=== PATIENT | female | born 1935 | race Caucasian/White ===

== ENCOUNTER 2017-03-31 12:52 | Outpatient (CLI) | payer MEDICARE, OTHER | END 2017-03-31 12:53 | disposition home or self-care (01) | LOC: DI 12:52 | PROVIDERS: ATTEND Internal Medicine Cardiovascular Disease | DX: Z01.810 Encounter for preprocedural cardiovascular examination (principal); I50.9 Heart failure, unspecified; R00.1 Bradycardia, unspecified | CPT/HCPCS: 93306 ==

== ENCOUNTER 2017-07-25 15:34 | Outpatient (CLI) | payer MEDICARE, OTHER ==
[2017-07-25 15:56] LABS: BASOPHILS % (AUTO) 0.5 %; EOSINOPHILS # (AUTO) 0.1 10^3/uL (0.0-0.7); EOSINOPHILS % (AUTO) 2.2 %; HGB - HEMOGLOBIN 12.8 g/dL (12.0-16.0); LYMPHOCYTES # (AUTO) 1.7 10^3/uL (1.5-3.5); LYMPHOCYTES % (AUTO) 25.5 %; MEAN CORPUSCULAR HGB CONC 33.7 g/dL (32.0-36.0); MEAN CORPUSCULAR VOLUME 91.9 fL (81.0-99.0); MEAN PLATELET VOLUME 6.8 fL (7.9-10.8); MONOCYTES # (AUTO) 0.4 10^3/uL (0.0-1.0); MONOCYTES % (AUTO) 5.9 %; NEUTROPHILS # (AUTO) 4.4 10^3/uL (1.5-6.6); NEUTROPHILS % (AUTO) 65.9 %; PLT - PLATELET COUNT 358 10^3/uL (130-450); RED BLOOD COUNT 4.14 10^6/uL (4.20-5.40); RED CELL DISTRIBUTION WIDTH 13.9 % (12.0-15.0); WHITE BLOOD COUNT 6.6 x10^3/uL (4.8-10.8)
== END 2017-07-25 15:35 | disposition home or self-care (01) ==
LOC: LAB 15:34
PROVIDERS: ATTEND Internal Medicine Cardiovascular Disease
DX: R06.00 Dyspnea, unspecified (principal); Z79.899 Other long term (current) drug therapy
CPT/HCPCS: 36415; 83880; 85025

== ENCOUNTER 2017-10-09 15:52 | Emergency (ER) | payer MEDICARE, OTHER ==
--- NOTE | 2017-10-09 17:15 | ED Physician Documentation ---
History of Present Illness - Stated complaint Stated Complaint: COUGH/CONSTIPATED - Chief complaint Chief Complaint: General - Additonal information Additional information: hx from pt 82 f to ER with 2 CC 1) lifelong bowel issues with sung severe cosntipation, has had many colonoscopies most recently 8 yr ago and she always has a terrible time with the prep and has decided that age 82 she is not going to go through that again, no BM and no no flatus for 8 days despite taking laxatives and manually disimpacting herself, no NV, mild bloating, no abd or rectal pain 2) cough productive of yellow sputum, no sig soa, no fever, no foreign travel, did go to [facility], no leg swelling Review of Systems Constitutional: denies: Fever Cardiac: denies: Chest pain / pressure Respiratory: reports: Cough. denies: Dyspnea GI: reports: Abdominal Swelling, Constipation. denies: Abdominal Pain, Vomiting Immunocompromised: denies: Immunocompromised PD PAST MEDICAL HISTORY - Past Medical History Cardiovascular: High cholesterol - Past Surgical History Past Surgical History: Yes Ortho: Other - Present Medications Home Medications: Ambulatory Orders Medication Instructions Recorded Confirmed Amitriptyline [Elavil] 50 mg PO QPM 07/26/14 02/25/15 Aspirin [Aspir 81] 81 mg PO DAILY 07/26/14 02/25/15 Bupropion HCl [Wellbutrin] 75 mg PO DAILY 07/26/14 02/25/15 Omeprazole [PriLOSEC] 20 mg PO DAILY 07/26/14 02/25/15 Venlafaxine [Effexor] 37.5 mg PO DAILY 07/26/14 02/25/15 Atorvastatin [Lipitor] 60 mg PO QPM 07/28/14 02/25/15 Budesonide/Formoterol Fumarate 1 spray IH DAILY PRN 07/28/14 02/25/15 [Symbicort 80-4.5 Mcg Inhaler] Calcium Carbonate/Vitamin D3 2 each PO DAILY 07/28/14 02/25/15 [Calcium 600 + D3 Softgel] Glucosa Ferrari 2Kcl/Chondroitin Ferrari 2 each PO DAILY 07/28/14 02/25/15 [Glucosamine & Chondroitin Cap] Losartan [Cozaar] 12.5 mg PO DAILY 07/28/14 02/25/15 Diclofenac Sodium 50 DAILY 07/29/14 02/25/15 Omeprazole 1 tab PO DAILY 10/09/17 10/09/17 - Allergies Allergies/Adverse Reactions: Allergies Allergy/AdvReac Type Severity Reaction Status Date / Time No Known Drug Allergies Allergy Verified 10/09/17 16:02 - Social History Does the pt smoke?: No Smoking Status: Never smoker Does the pt drink ETOH?: Yes Does the pt have substance abuse?: No - Immunizations Immunizations are current?: Yes - POLST Patient has POLST: No PD ED PE NORMAL - Vitals Vital signs reviewed: Yes - Cardiac Cardiac: RRR - Respiratory Respiratory: Other (wet cough, dec carrie) - Abdomen Abdomen: Soft, Non tender - Rectal Rectal: Other (no stool in vault) - Derm Derm: Normal color - Extremities Extremities: Other (minimal carrie symm edema without tenderness) - Neuro Neuro: Alert and oriented X 3 Results - Vitals Vitals: Vital Signs - 24 hr 10/09/17 10/09/17 15:54 18:39 Temperature 36.4 C L Heart Rate 76 68 Respiratory 16 18 Rate Blood Pressure 161/75 H 159/76 H O2 Saturation 100 99 Oxygen O2 Source Room air - Rads (name of study) CXR Radiology: See rad report (nl) AAS Radiology: See rad report (no SBO sig obstipation) Departure - Departure Disposition: 01 Home, Self Care Clinical Impression: URI (upper respiratory infection) Qualifiers: URI type: unspecified viral URI Qualified Code(s): J06.9 - Acute upper respiratory infection, unspecified Constipation Qualifiers: Constipation type: unspecified constipation type Qualified Code(s): K59.00 - Constipation, unspecified Condition: Good Instructions: ED Constipation, ED Upper Resp Infec No Abx Tx Follow-Up: Candace Vargas MD [Primary Care Provider] - Comments: The xrays do not show pneumonia or a bowel obstruction - you do have a large amount of backed up stool I recommend we let you go home with Go-Lytely - drink several large sips every 15 minutes until you are pooping clear water, then you can stop. You might want to apply vaseline or a barrier cream to your bottom to keep it from getting sore and raw from the diarrhea I also prescribed cough medications Follow up with your PMD if not better in 2 days Return if worse
--- NOTE | 2017-10-09 18:16 | XRAY Preliminary Report ---
Exam: XR ABDOMEN 2 VIEW X-RAY IMPRESSION: Moderate obstipation. [facility] SITE ID: [id number]
--- NOTE | 2017-10-09 18:17 | XRAY Preliminary Report ---
Exam: XR CHEST 2 VIEW X-RAY IMPRESSION: Normal 2-view chest radiography. [facility] SITE ID: [id number]
--- NOTE | 2017-10-09 18:24 | XRAY Report ---
EXAM: ABDOMEN RADIOGRAPHY. EXAM DATE: 10/09/2017 05:40 PM. CLINICAL HISTORY: No bowel movement or flatus. COMPARISON: None. TECHNIQUE: 2 views. FINDINGS: Lung Bases: Unremarkable. Bowel Gas Pattern: Marked amount of stool throughout the tortuous moderately distended colon. Small air-fluid levels within nondistended loops of small bowel. No gastric distention. Free Air: None. Other: Multiple pelvic clips. Left total hip replacement. IMPRESSION: Moderate obstipation. [facility] Referring Provider Line: [phone] SITE ID: [id number]
--- NOTE | 2017-10-09 18:24 | XRAY Report ---
EXAM: CHEST RADIOGRAPHY EXAM DATE: 10/09/2017 05:40 PM. CLINICAL HISTORY: Cough. COMPARISON: None. TECHNIQUE: 2 views. FINDINGS: Lungs/Pleura: No focal opacities evident. No pleural effusion. No pneumothorax. Normal volumes. Mediastinum: Heart and mediastinal contours are unremarkable. Other: Prior left breast surgery. IMPRESSION: Normal 2-view chest radiography. [facility] Referring Provider Line: [phone] SITE ID: [id number]
[2017-10-09 18:39] VITALS: BP 159/76
[2017-10-09] MEDS ORDERED: BENZONATATE 100 MG CAPSULE PO STA (18:59)
[2017-10-09] MEDS ORDERED: guaiFENesin/DEXTROMETHORPHAN 10 ML UDC PO STA (18:59)
[2017-10-09] MEDS ORDERED: PEG 3350/NA SULF,BICARB,CL/KCL 4,000 ML BOTTLE PO ONE (18:59)
== END 2017-10-09 19:27 | disposition home or self-care (01) ==
LOC: ED 15:52
DX: J06.9 Acute upper respiratory infection, unspecified (principal); K59.00 Constipation, unspecified; R60.0 Localized edema; Z79.82 Long term (current) use of aspirin
CPT/HCPCS: 71046; 74019; 99283; A9270

== ENCOUNTER 2019-02-04 15:30 | Outpatient (CLI) | payer MEDICARE, OTHER ==
[2019-02-04 17:44] LABS: CALCIUM 9.1 mg/dL (8.5-10.3)
== END 2019-02-04 15:31 | disposition home or self-care (01) ==
LOC: LAB.S 15:30
PROVIDERS: ATTEND Internal Medicine Cardiovascular Disease
DX: I50.23 Acute on chronic systolic (congestive) heart failure (principal)
CPT/HCPCS: 36415; 80048; 83880

== ENCOUNTER 2021-01-09 14:32 | Outpatient (CLI) | payer MEDICARE, OTHER | END 2021-01-09 14:33 | disposition home or self-care (01) | LOC: LAB.S 14:32 | PROVIDERS: ATTEND Nurse Practitioner Acute Care | DX: E34.9 Endocrine disorder, unspecified (principal); E55.9 Vitamin D deficiency, unspecified; E78.70 Disorder of bile acid and cholesterol metabolism, unspecified; Z53.9 Procedure and treatment not carried out, unspecified reason ==

== ENCOUNTER 2021-01-11 08:55 | Outpatient (CLI) | payer MEDICARE, OTHER ==
[2021-01-11 14:47] LABS: BASOPHILS % (AUTO) 0.6 %; EOSINOPHILS # (AUTO) 0.1 10^3/uL (0.0-0.7); EOSINOPHILS % (AUTO) 3.6 %; HCT - HEMATOCRIT 37.7 % (37.0-47.0); HGB - HEMOGLOBIN 11.9 g/dL (12.0-16.0); LYMPHOCYTES # (AUTO) 1.4 10^3/uL (1.5-3.5); LYMPHOCYTES % (AUTO) 38.9 %; MEAN CORPUSCULAR HEMOGLOBIN 30.8 pg (27.0-31.0); MEAN CORPUSCULAR HGB CONC 31.6 g/dL (32.0-36.0); MEAN CORPUSCULAR VOLUME 97.7 fL (81.0-99.0); MEAN PLATELET VOLUME 9.8 fL (7.9-10.8); MONOCYTES # (AUTO) 0.3 10^3/uL (0.0-1.0); MONOCYTES % (AUTO) 8.6 %; NEUTROPHILS # (AUTO) 1.7 10^3/uL (1.5-6.6); PLT - PLATELET COUNT 365 10^3/uL (130-450); RED BLOOD COUNT 3.86 10^6/uL (4.20-5.40); RED CELL DISTRIBUTION WIDTH 14.1 % (12.0-15.0); WHITE BLOOD COUNT 3.6 x10^3/uL (4.8-10.8)
[2021-01-11 15:21] LABS: RHEUMATOID FACTOR NEGATIVE (Negative)
[2021-01-11 15:25] LABS: CHOL/HDL RATIO 3.2 (<4.4); CHOLESTEROL 158 mg/dL; HDL CHOLESTEROL 49 mg/dL; LDL CHOLESTEROL,CALCULATED 86 mg/dL; LDL/HDL RATIO 1.8 (<4.4); TRIGLYCERIDES 116 mg/dL; VLDL CHOLESTEROL 23 mg/dL
[2021-01-11 15:31] LABS: THYROID STIMULATING HORMONE 4.61 uIU/mL (0.34-5.60)
[2021-01-11 15:35] LABS: FREE T3 2.91 pg/mL (2.5-3.9)
[2021-01-11 15:41] LABS: FERRITIN 53.2 ng/mL (11.0-306.8)
[2021-01-11 15:42] LABS: FOLATE 7.67 ng/mL (5.90 - >24.8)
[2021-01-11 19:48] LABS: ESTIMATED AVERAGE GLUCOSE 117 mg/dL (70-100); HEMOGLOBIN A1c% 5.7 % (4.27-6.07)
[2021-01-12 05:45] LABS: PROGESTERONE <0.5 ng/mL
[2021-01-12 06:01] LABS: ESTRADIOL <15 pg/mL
[2021-01-12 12:10] LABS: HOMOCYSTEINE 18.9 umol/L (<10.4)
== END 2021-01-11 08:56 | disposition home or self-care (01) ==
LOC: LAB.S 08:55
PROVIDERS: ATTEND Nurse Practitioner Acute Care
DX: E34.9 Endocrine disorder, unspecified (principal); E55.9 Vitamin D deficiency, unspecified; E78.70 Disorder of bile acid and cholesterol metabolism, unspecified
CPT/HCPCS: 36415; 80061; 81599; 82172; 82306; 82607; 82670; 82728; 82746; 83036; 83090; 83721; 84144; 84305; 84403; 84439; 84443; 84481; 85025; 86376; 86430

== ENCOUNTER 2021-02-02 16:28 | Outpatient (CLI) | payer MEDICARE, OTHER | END 2021-02-02 16:29 | disposition home or self-care (01) | LOC: COV 16:28 | PROVIDERS: ATTEND Internal Medicine Cardiovascular Disease | DX: Z01.812 Encounter for preprocedural laboratory examination (principal); R06.09 Other forms of dyspnea; Z20.822 Contact with and (suspected) exposure to COVID-19 ==

== ENCOUNTER 2022-12-30 11:47 | Emergency (ER) | payer MEDICARE, OTHER ==
[2022-12-30 11:59] VITALS: BP 132/67; O2SAT 100
[2022-12-30] MEDS ORDERED: ENOXAPARIN 80 MG/0.8 ML SYRINGE SUBQ STA (12:08)
--- NOTE | 2022-12-30 12:11 | ED Physician Documentation ---
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 She is not anticoagulated other than aspirin, she is not sure why. She developed a tender swollen area on the right leg today and is concerned about DVT. No chest pain or trouble breathing. PD PAST MEDICAL HISTORY - Past Medical History Cardiovascular: High cholesterol - Past Surgical History Past Surgical History: Yes Ortho: Other - Present Medications Home Medications: Ambulatory Orders Medication Instructions Recorded Confirmed Amitriptyline [Elavil] 50 mg PO QPM 07/26/14 02/25/15 Aspirin [Aspir 81] 81 mg PO DAILY 07/26/14 02/25/15 Bupropion HCl [Wellbutrin] 75 mg PO DAILY 07/26/14 02/25/15 Omeprazole [PriLOSEC] 20 mg PO DAILY 07/26/14 02/25/15 Venlafaxine [Effexor] 37.5 mg PO DAILY 07/26/14 02/25/15 Atorvastatin [Lipitor] 60 mg PO QPM 07/28/14 02/25/15 Budesonide/Formoterol Fumarate 1 spray IH DAILY PRN 07/28/14 02/25/15 [Symbicort 80-4.5 Mcg Inhaler] Calcium Carbonate/Vitamin D3 2 each PO DAILY 07/28/14 02/25/15 [Calcium 600 + D3 Softgel] Glucosa Ferrari 2Kcl/Chondroitin Ferrari 2 each PO DAILY 07/28/14 02/25/15 [Glucosamine & Chondroitin Cap] Losartan [Cozaar] 12.5 mg PO DAILY 07/28/14 02/25/15 Diclofenac Sodium 50 DAILY 07/29/14 02/25/15 Benzonatate [Tessalon] 100 mg PO TID PRN #20 capsule 10/09/17 Omeprazole 1 tab PO DAILY 10/09/17 10/09/17 guaiFENesin/DEXTROMETHORPHAN 10 ml PO Q6H PRN #120 ml 10/09/17 [Robitussin Dm] - Allergies Allergies/Adverse Reactions: Allergies Allergy/AdvReac Type Severity Reaction Status Date / Time No Known Drug Allergies Allergy Verified 10/09/17 16:02 - Social History Does the pt smoke?: No Smoking Status: Never smoker Does the pt drink ETOH?: Yes Does the pt have substance abuse?: No - Immunizations Immunizations are current?: Yes - POLST Patient has POLST: No PD ED PE NORMAL - Vitals Vital signs reviewed: Yes - General General: Alert and oriented X 3, No acute distress - Back Back: No CVA TTP, No spinal TTP - Extremities Extremities: Other (On the anteromedial right knee there is what appears to be probably a superficial venous thrombosis with prominent surface vein.) - Neuro Neuro: Alert and oriented X 3, Normal speech Results - Vitals Vitals: Vital Signs - 24 hr 12/30/22 11:51 Temperature 36.6 C Heart Rate 59 L Respiratory 18 Rate Blood Pressure 132/67 H O2 Saturation 100 Oxygen O2 Source Room air PD Medical Decision Making - ED course ED course: 87-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 Unfortunately due to staffing issues we do not have ultrasonography available today and she is very understanding. We will give her a dose of Lovenox, she shows me recent labs and her GFR is 46 so no renal adjustment is necessary. She will return tomorrow for ultrasound. Departure - Departure Disposition: 01 Home, Self Care Clinical Impression: Pain in extremity Qualifiers: Extremity pain location: lower extremity Laterality: right Qualified Code(s): M79.604 - Pain in right leg Condition: Good Record reviewed to determine appropriate education?: Yes Instructions: ED DVT Comments: As discussed, I suspect you do not have deep vein thrombosis, this looks more superficial to me but she certainly do need the ultrasound. Given that we do not have ultrasound available today. We have temporized the issue by giving you a dose of Lovenox blood thinner. Return tomorrow morning to see my partner, Dr. Heath and have ultrasonography ordered. Please make sure when you check-in that you are checking into the emergency department, not trying to simply go over to ultrasound.
== END 2022-12-30 12:26 | disposition home or self-care (01) ==
LOC: ED 11:47
DX: M79.604 Pain in right leg (principal); E78.00 Pure hypercholesterolemia, unspecified; Z79.82 Long term (current) use of aspirin; Z79.899 Other long term (current) drug therapy
CPT/HCPCS: 99283; J1650

== ENCOUNTER 2022-12-31 10:04 | Emergency (ER) | payer MEDICARE, OTHER ==
[2022-12-31 10:17] VITALS: O2SAT 98
--- NOTE | 2022-12-31 11:58 | ED Physician Documentation ---
PD HPI LOWER EXT INJURY - Stated complaint Stated Complaint: SWELLING, PX IN RT KNEE - Chief complaint Chief Complaint: Ext Problem - History obtained from History obtained from: Patient - Additional information Additional information: Patient is an 87-year-old Presenting for evaluation of tender swollen area to the right leg that she has noticed since yesterday. She denies chest pain or shortness of breath. 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 She is unclear as to why. Denies history of GI bleeds. Denies recent travel or immobilization. Patient was seen in the ER yesterday but due to lack of ultrasonography was advised to come to the emergency department today for ultrasound. She was given a dose of Lovenox yesterday. Review of Systems Constitutional: denies: Fever Cardiac: denies: Chest pain / pressure Respiratory: denies: Dyspnea GI: denies: Abdominal Pain Musculoskeletal: reports: Extremity pain PD PAST MEDICAL HISTORY - Past Medical History Cardiovascular: High cholesterol - Past Surgical History Past Surgical History: Yes Ortho: Other - Present Medications Home Medications: Ambulatory Orders Medication Instructions Recorded Confirmed Amitriptyline [Elavil] 50 mg PO QPM 07/26/14 02/25/15 Aspirin [Aspir 81] 81 mg PO DAILY 07/26/14 02/25/15 Bupropion HCl [Wellbutrin] 75 mg PO DAILY 07/26/14 02/25/15 Omeprazole [PriLOSEC] 20 mg PO DAILY 07/26/14 02/25/15 Venlafaxine [Effexor] 37.5 mg PO DAILY 07/26/14 02/25/15 Atorvastatin [Lipitor] 60 mg PO QPM 07/28/14 02/25/15 Budesonide/Formoterol Fumarate 1 spray IH DAILY PRN 07/28/14 02/25/15 [Symbicort 80-4.5 Mcg Inhaler] Calcium Carbonate/Vitamin D3 2 each PO DAILY 07/28/14 02/25/15 [Calcium 600 + D3 Softgel] Glucosa Ferrari 2Kcl/Chondroitin Ferrari 2 each PO DAILY 07/28/14 02/25/15 [Glucosamine & Chondroitin Cap] Losartan [Cozaar] 12.5 mg PO DAILY 07/28/14 02/25/15 Diclofenac Sodium 50 DAILY 07/29/14 02/25/15 Benzonatate [Tessalon] 100 mg PO TID PRN #20 capsule 10/09/17 Omeprazole 1 tab PO DAILY 10/09/17 10/09/17 guaiFENesin/DEXTROMETHORPHAN 10 ml PO Q6H PRN #120 ml 10/09/17 [Robitussin Dm] Rivaroxaban [Xarelto] 10 mg PO DAILY #45 tablet 12/31/22 - Allergies Allergies/Adverse Reactions: Allergies Allergy/AdvReac Type Severity Reaction Status Date / Time No Known Drug Allergies Allergy Verified 10/09/17 16:02 - Social History Does the pt smoke?: No Smoking Status: Never smoker Does the pt drink ETOH?: Yes Does the pt have substance abuse?: No - Immunizations Immunizations are current?: Yes - POLST Patient has POLST: No PD ED PE NORMAL - General General: Alert and oriented X 3, No acute distress, Well developed/nourished - HEENT HEENT: Atraumatic - Neck Neck: Supple, no meningeal sign - Cardiac Cardiac: RRR, Strong equal pulses - Respiratory Respiratory: No respiratory distress - Extremities Extremities: No edema, No calf tenderness / cord, Other (Tenderness and prominence over superficial vein of superior medial aspect of right knee) Results - Vitals Vitals: Vital Signs - 24 hr 12/31/22 12/31/22 10:09 12:04 Temperature 36.6 C 36.5 C Heart Rate 58 L 62 Respiratory 20 19 Rate Blood Pressure 140/66 H 145/68 H O2 Saturation 98 98 Oxygen O2 Source Room air PD Medical Decision Making - ED course Complexity details: reviewed results, re-evaluated patient ED course: Patient is an 87-year-old presenting for evaluation of tenderness over superficial vein to the right lower extremity. No calf tenderness or swelling. Ultrasound was obtained which is negative for DVT but does show superficial thrombus. 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 Unclear as to why her anticoagulation was stopped years ago. Denies history of head injuries or GI bleeds. Given her prior history of DVT and PE I think it is reasonable to treat this with oral anticoagulation. We discussed risks and benefits. She is comfortable with Xarelto. She is counseled on need for close follow-up with primary care provider as well as concerning symptoms to return for. Departure - Departure Disposition: 01 Home, Self Care Clinical Impression: Superficial thrombophlebitis Condition: Stable Instructions: ED Phlebitis Superficial Prescriptions: Rivaroxaban [Xarelto] 10 mg PO DAILY #45 tablet Comments: Your ultrasound today shows that you have a clot in a superficial leg vein. There is no signs of a deeper clot. Based on your history though of having deep vein thrombosis in the past I do recommend starting you on a blood thinner and would recommend close follow-up with your primary care doctor in the next 1 to 2 weeks. Please return to the emergency department with any worsening symptoms. I have sent this prescription to [facility] in [place]. Forms: PCP List Discharge Date/Time: 12/31/22 12:04
[2022-12-31 12:11] VITALS: BP 145/68
--- NOTE | 2022-12-31 12:53 | Ultrasound Report ---
PROCEDURE: Duplex Ext Veins Right INDICATIONS: swelling/pain TECHNIQUE: Real-time imaging, as well as color and pulse Doppler interrogation, were performed of the lower extr emity deep veins from the inguinal ligament to the popliteal fossa. Attempted visualization of the ca lf veins was performed. COMPARISON: None. FINDINGS: The deep veins are normally compressible, and free of intraluminal thrombus. Color and pu lse Doppler demonstrate normal phasic intraluminal flow. There is normal augmentation response to di stal compression maneuver. There is a superficial venous varices at the area of pain shows superficial thrombosis IMPRESSION: No evidence of deep venous thrombosis, right lower extremity. Superficial venous varicocele thrombus noted at the area of pain. Reviewed by: Mikal Green MD on 12/31/2022 11:52 AM PR[facility]AN[facility] Approved by: Mikal Green MD on 12/31/2022 11:52 AM PR[facility] Station ID: [id number]
== END 2022-12-31 12:04 | disposition home or self-care (01) ==
LOC: ED 10:04
DX: I80.01 Phlebitis and thrombophlebitis of superficial vessels of right lower extremity (principal); E78.00 Pure hypercholesterolemia, unspecified; Z79.82 Long term (current) use of aspirin; Z79.51 Long term (current) use of inhaled steroids; Z79.899 Other long term (current) drug therapy
CPT/HCPCS: 99283; 99284

== ENCOUNTER 2023-01-15 14:17 | Emergency (ER) | payer MEDICARE, OTHER ==
--- NOTE | 2023-01-15 15:48 | ED Physician Documentation ---
PD HPI LOWER EXT INJURY - Stated complaint Stated Complaint: RT LEG PX - Chief complaint Chief Complaint: Ext Problem - History obtained from History obtained from: Patient - Additional information Additional information: She was seen a few weeks ago for superficial venous thrombosis and started on Xarelto. (In contrast to the nurses notes she is taking it). Last night she was doing foot exercises and today developed focal pain of the bottom of the foot at the anterior portion of the calcaneus. She denies pedal edema, calf pain. PD PAST MEDICAL HISTORY - Past Medical History Cardiovascular: High cholesterol - Past Surgical History Past Surgical History: Yes Ortho: Other - Present Medications Home Medications: Ambulatory Orders Medication Instructions Recorded Confirmed Amitriptyline [Elavil] 50 mg PO QPM 07/26/14 02/25/15 Aspirin [Aspir 81] 81 mg PO DAILY 07/26/14 02/25/15 Bupropion HCl [Wellbutrin] 75 mg PO DAILY 07/26/14 02/25/15 Omeprazole [PriLOSEC] 20 mg PO DAILY 07/26/14 02/25/15 Venlafaxine [Effexor] 37.5 mg PO DAILY 07/26/14 02/25/15 Atorvastatin [Lipitor] 60 mg PO QPM 07/28/14 02/25/15 Budesonide/Formoterol Fumarate 1 spray IH DAILY PRN 07/28/14 02/25/15 [Symbicort 80-4.5 Mcg Inhaler] Calcium Carbonate/Vitamin D3 2 each PO DAILY 07/28/14 02/25/15 [Calcium 600 + D3 Softgel] Glucosa Ferrari 2Kcl/Chondroitin Ferrari 2 each PO DAILY 07/28/14 02/25/15 [Glucosamine & Chondroitin Cap] Losartan [Cozaar] 12.5 mg PO DAILY 07/28/14 02/25/15 Diclofenac Sodium 50 DAILY 07/29/14 02/25/15 Benzonatate [Tessalon] 100 mg PO TID PRN #20 capsule 10/09/17 Omeprazole 1 tab PO DAILY 10/09/17 10/09/17 guaiFENesin/DEXTROMETHORPHAN 10 ml PO Q6H PRN #120 ml 10/09/17 [Robitussin Dm] Rivaroxaban [Xarelto] 10 mg PO DAILY #45 tablet 12/31/22 - Allergies Allergies/Adverse Reactions: Allergies Allergy/AdvReac Type Severity Reaction Status Date / Time No Known Drug Allergies Allergy Verified 01/15/23 14:27 - Social History Does the pt smoke?: No Smoking Status: Never smoker Does the pt drink ETOH?: Yes Does the pt have substance abuse?: No - Immunizations Immunizations are current?: Yes - POLST Patient has POLST: No PD ED PE NORMAL - Vitals Vital signs reviewed: Yes - General General: Alert and oriented X 3, No acute distress - Extremities Extremities: Other (Focal tenderness of the back of the plantar fascia consistent with probably planter fasciitis plus or minus heel spur. No foot tenderness, normal pedal pulses, no asymmetry of the calves, no edema, no calf tenderness.) - Neuro Neuro: Alert and oriented X 3, Normal speech Results - Vitals Vitals: Vital Signs - 24 hr 01/15/23 01/15/23 14:27 15:46 Temperature 36.4 C L Heart Rate 63 68 Respiratory 18 18 Rate Blood Pressure 148/64 H 145/64 H O2 Saturation 97 98 Oxygen O2 Source Room air PD Medical Decision Making - ED course ED course: She was concerned about worsening of the blood clot but the pain is consistent with planter fasciitis/heel spur and she was does not have any pain of the calf or leg per se. She is on DOAC. Departure - Departure Disposition: 01 Home, Self Care Clinical Impression: Plantar fasciitis of right foot Condition: Good Record reviewed to determine appropriate education?: Yes Instructions: ED Plantar Fasciitis Comments: As discussed, this is consistent with planter fasciitis plus or minus a heel spur, do the gentle stretches as shown and Tylenol for pain. Return if worse. Follow-up with your primary care physician next available appointment for recheck. Continue your blood thinner. Forms: PCP List Discharge Date/Time: 01/15/23 15:54
[2023-01-15 15:55] VITALS: BP 145/64; O2SAT 98
== END 2023-01-15 15:54 | disposition home or self-care (01) ==
LOC: ED 14:17
DX: M72.2 Plantar fascial fibromatosis (principal)
CPT/HCPCS: 99283; 99284

== ENCOUNTER 2023-02-12 13:39 | Outpatient (CLI) | payer MEDICARE, OTHER ==
[2023-02-12 20:28] LABS: CALCIUM 9.1 mg/dL (8.5-10.3)
== END 2023-02-12 13:40 | disposition home or self-care (01) ==
LOC: LAB.S 13:39
PROVIDERS: ATTEND Student in an Organized Health Care Education/Training Program
DX: M85.80 Other specified disorders of bone density and structure, unspecified site (principal)
CPT/HCPCS: 36415; 82306; 82310; 83970